=== PATIENT | female | born 1995 | race Caucasian/White ===

== ENCOUNTER 2024-10-30 16:09 | Emergency (ER) | payer BC, MEDICAID, SELFPAY ==
[2024-10-30 16:10] VITALS: BP 114/71; PULSE 99; RESP 16; TEMP 36.8; O2SAT 99; BMI 28.3
[2024-10-30 16:50] LABS: Basophils % 0.3 %; Eosinophils # 0.1 10^3/uL (0.0-0.8); Eosinophils % 0.6 %; Hematocrit 35.2 % (36-47); Lymphocytes # 1.5 10^3/uL (0.8-4.8); Lymphocytes % 13.8 %; Mean Corpuscular HGB Conc 30.1 g/dL (30-55); Mean Corpuscular Hemoglobin 20.6 pg (27-33); Mean Corpuscular Volume 68.5 fl (85-98); Mean Platelet Volume 10.2 fL (7.4-10.4); Monocytes # 0.7 10^3/uL (0.2-0.9); Monocytes % 6.5 %; Neutrophils # 8.53 10^3/uL (1.8-7.7); Neutrophils % 78.4 %; Nucleated Red Blood Cells % 0 %; Platelet Count 263 10^3/cmm (157-399); Red Blood Count 5.14 10^6/uL (3.85-5.65); Red Cell Distribution Width 17.8 % (12.1-15.1); White Blood Count 10.88 10^3/uL (3.29-11.43)
[2024-10-30 17:18] LABS: Alanine Aminotransferase 10 U/L (0-33); Albumin Level 3.8 g/dL (3.5-5.2); Alkaline Phosphatase 51 U/L (35-105); Anion Gap 16.3 (5-19); Aspartate Amino Transferase 14 U/L (0-32); Blood Urea Nitrogen 5 mg/dL (6-20); Calcium 8.9 mg/dL (8.5-10.5); Carbon Dioxide 20 mmol/L (22-29); Chloride 103 mmol/L (98-107); Creatinine Clr Calc Pharmacy 211.1685; Globulin 3.1 g/dL (1.3-4.6); Glomerular Filtration Rate 187.4 mL/min (90-130); Glucose 115 mg/dL (65-115); Lipase 27 U/L (13-60); Osmolality Calculated 280 mOsm/kg (285-295); Potassium 3.3 mmol/L (3.5-5.1); Sodium 136 mmol/L (136-145); Total Bilirubin 0.2 mg/dL (0.15-1.2); Total Protein 6.9 g/dL (6.6-8.7)
--- NOTE | 2024-10-30 17:28 | W.ED.PREGNAN ---
Documented by User: Joe Friedman DO 10/30/24 17:49 HPI - General: Chief complaint: OB/Uterine Contractions Stated complaint: 12 weeks preg, abd pain, n/v Time Seen by Provider: 10/30/24 17:27 History of Present Illness: 29-year-old female presents emergency room she estimates she is approximately 12 weeks . However she is a last normal menstrual period of July 13, 2024 because her an estimated gestational age of 15 weeks and 3 days. She denies any vaginal bleeding she has right-sided cramping. No dysuria urgency or frequency. No hematuria. Associated symptoms: Reports abdominal pain, nausea and vomiting; Deny dysuria Related Data Home Medications ?Medication ?Instructions ?Recorded ?Confirmed Control Patch transdermal 08/30/20 Previous Rx's ?Medication ?Instructions ?Recorded amoxicillin 875 mg tablet 875 mg PO BID 10 days #20 tabs 08/30/20 Allergies Allergy/AdvReac Type Severity Reaction Status Date / Time paroxetine (From Paxil) Allergy ADR-Agitate Verified 08/30/20 14:26 d Review of Systems Const: Denies: fever(s) or chills Card: Denies: chest pain Resp: Denies: dyspnea GI: Reports: abdominal pain, nausea and vomiting : Denies: dysuria, urinary frequency or urinary urgency Musc: Denies: neck pain or back pain Skin/Breast: Denies: rash PFSH ED PFSH: Social History Smoking and tobacco/nicotine status: current every day tobacco/nicotine user Physical Exam Const: GENERAL APPEARANCE: cooperative ORIENTATION/CONSCIOUSNESS: Yes awake, Yes oriented to person, Yes oriented to place and Yes oriented to time HENMT: COMMON NORMALS: normocephalic, atraumatic and hearing grossly normal bilaterally HEAD & SCALP: normocephalic and atraumatic Resp: COMMON NORMALS: normal respiratory effort, No retractions, No use of accessory muscles and clear to auscultation bilaterally AUSCULTATION: clear to auscultation bilaterally Cardio: COMMON NORMALS: regular rate, regular rhythm and No murmurs present (Cardio) RATE: regular rate RHYTHM: regular rhythm GI: COMMON NORMALS: Soft to palpation and No hepatosplenomegaly present AUSCULTATION: Yes normoactive bowel sounds PALPATION: Yes Soft to palpation, No Tenderness to palpation present (GI), No Guarding due to palpation present (GI) and Yes No hepatosplenomegaly present Extremity: COMMON NORMALS: normal to inspection, capillary refill normal, no clubbing, cyanosis or edema, no calf tenderness and no pedal edema Neuro: SENSORIUM/ORIENTATION: Yes oriented to person, Yes oriented to place and Yes oriented to time Skin: COMMON NORMALS: no rashes or lesions noted GENERAL SKIN EXAM: no rashes or lesions noted Course Vital Signs: Vital signs: Vital Signs Temperature 98.3 F 10/30/24 16:10 Pulse Rate 76 10/30/24 20:50 Respiratory Rate 16 10/30/24 16:10 Blood Pressure 105/58 10/30/24 20:50 Pulse Oximetry 97 10/30/24 20:50 Oxygen Delivery Me thod Room Air 10/30/24 17:45 MDM - OB/Uterine Contractions Medical Decision Making Care signed out to Dr. Bills at change of shift. See final notes for diagnosis and disposition. Lab Data 10/30/24 16:39 10/30/24 16:39 Radiology Impressions Obstetrics Ultrasound 10/30/24 18:39 IMPRESSION: Single live intrauterine gestation as above. Laboratory Results WBC 10.88 10^3/uL (3.29-11.43) 10/30/24 16:39 RBC 5.14 10^6/uL (3.85-5.65) 10/30/24 16:39 Hgb 10.60 g/dL (11.27-16.99) L 10/30/24 16:39 Hct 35.2 % (36-47) L 10/30/24 16:39 MCV 68.5 fl (85-98) L 10/30/24 16:39 MCH 20.6 pg (27-33) L 10/30/24 16:39 MCHC 30.1 g/dL (30-55) 10/30/24 16:39 RDW 17.8 % (12.1-15.1) H 10/30/24 16:39 Plt Count 263 10^3/cmm (157-399) 10/30/24 16:39 MPV 10.2 fL (7.4-10.4) 10/30/24 16:39 Neut % (Auto) 78.4 % 10/30/24 16:39 Lymph % (Auto) 13.8 % 10/30/24 16:39 Duchesne % (Auto) 6.5 % 10/30/24 16:39 Eos % (Auto) 0.6 % 10/30/24 16:39 Baso % (Auto) 0.3 % 10/30/24 16:39 Neut # (Auto) 8.53 10^3/uL (1.8-7.7) H 10/30/24 16:39 Lymph # (Auto) 1.5 10^3/uL (0.8-4.8) 10/30/24 16:39 Duchesne # (Auto) 0.7 10^3/uL (0.2-0.9) 10/30/24 16:39 Eos # (Auto) 0.1 10^3/uL (0.0-0.8) 10/30/24 16:39 Baso # (Auto) 0.0 10^3/uL (0.0-0.1) 10/30/24 16:39 Nucleated RBC % (auto) 0 % 10/30/24 16:39 Nucleated RBCs # 0.0 /100WBC 10/30/24 16:39 Sodium 136 mmol/L (136-145) 10/30/24 16:39 Potassium 3.3 mmol/L (3.5-5.1) L 10/30/24 16:39 Chloride 103 mmol/L (98-107) 10/30/24 16:39 Carbon Dioxide 20 mmol/L (22-29) L 10/30/24 16:39 Anion Gap 16.3 (5-19) 10/30/24 16:39 BUN 5 mg/dL (6-20) L 10/30/24 16:39 Creatinine 0.4 mg/dL (0.5-0.9) L 10/30/24 16:39 GFR Calculation 187.4 mL/min (90-130) H 10/30/24 16:39 Glucose 115 mg/dL (65-115) 10/30/24 16:39 Calculated Osmolality 280 mOsm/kg (285-295) L 10/30/24 16:39 Calcium 8.9 mg/dL (8.5-10.5) 10/30/24 16:39 Total Bilirubin 0.2 mg/dL (0.15-1.2) 10/30/24 16:39 AST 14 U/L (0-32) 10/30/24 16:39 ALT 10 U/L (0-33) 10/30/24 16:39 Alkaline Phosphatase 51 U/L (35-105) 10/30/24 16:39 Total Protein 6.9 g/dL (6.6-8.7) 10/30/24 16:39 Albumin 3.8 g/dL (3.5-5.2) 10/30/24 16:39 Globulin 3.1 g/dL (1.3-4.6) 10/30/24 16:39 Lipase 27 U/L (13-60) 10/30/24 16:39 Ser , Semi-Qnt 52010.00 mIU/mL 10/30/24 16:39 Urine Color Yellow (Yellow) 10/30/24 17:20 Urine Appearance Clear (CLEAR) 10/30/24 17:20 Urine pH 6.0 (5-7) 10/30/24 17:20 Ur Specific Elwood 1.022 (1.005-1.030) 10/30/24 17:20 Urine Protein Negative (Negative) 10/30/24 17:20 Urine Glucose (UA) Negative (Normal) 10/30/24 17:20 Urine Ketones Negative (Negative) 10/30/24 17:20 Urine Blood Negative (Negative) 10/30/24 17:20 Urine Nitrate Negative (Negative) 10/30/24 17:20 Urine Bilirubin Negative (Negative) 10/30/24 17:20 Urine Urobilinogen 1.0 mg/dL (Negative) 10/30/24 17:20 Ur Leukocyte Esterase 1+ (Negative) A 10/30/24 17:20 Urine RBC 0-2 /hpf (0-2) 10/30/24 17:20 Urine WBC 11-20 /hpf (0-5) H 10/30/24 17:20 Ur Squamous Epith Cells 0-5 /hpf (0-5) 10/30/24 17:20 Amorphous Sediment Not Reportable 10/30/24 17:20 Urine Bacteria Trace /hpf (NONE) 10/30/24 17:20 Hyaline Casts 0.40 /lpf 10/30/24 17:20 Discharge Plan Discharge Patient Disposition: Home Clinical Impression: Abdominal pain affecting Condition: Stable Prescriptions: No Action Control Patch transdermal amoxicillin 875 mg tablet 875 mg PO BID 10 Days Qty: 20 0RF Discharge Orders: Discharge ED (Routine); Ordered 10/30/24 Ordered By: Marvin Bills Patient Instructions: Abdominal Pain (ED) Activity Restrictions/Additional Instructions: As we discussed, the pain in your abdomen is alarmingly close to the region of the appendix however the timing of your pain and the quality of your pain are not consistent with appendicitis at this time. If symptoms get worse please do not hesitate to return to the emergency department so that we can do further testing. As for now, you appear to have a healthy intrauterine . Please follow-up with the [facility] as previously scheduled. Print Language: Prydeinig Coding Level of Care Code ED Glove Former for Chg Fwd Documented by User: Marvin Bills MD 10/31/24 05:42 HPI - General: Chief complaint: OB/Uterine Contractions Stated complaint: 12 weeks preg, abd pain, n/v Time Seen by Provider: 10/30/24 17:27 Related Data Home Medications ?Medication ?Instructions ?Recorded ?Confirmed Control Patch transdermal 08/30/20 Previous Rx's ?Medication ?Instructions ?Recorded amoxicillin 875 mg tablet 875 mg PO BID 10 days #20 tabs 08/30/20 Allergies Allergy/AdvReac Type Severity Reaction Status Date / Time paroxetine (From Paxil) Allergy ADR-Agitate Verified 08/30/20 14:26 d [facility] ED PFS: Social History Smoking and tobacco/nicotine status: current every day tobacco/nicotine user Course Vital Signs: Vital signs: Vital Signs Temperature 98.3 F 10/30/24 16:10 Pulse Rate 76 10/30/24 20:50 Respiratory Rate 16 10/30/24 16:10 Blood Pressure 105/58 10/30/24 20:50 Pulse Oximetry 97 10/30/24 20:50 Oxygen Delivery Me thod Room Air 10/30/24 17:45 MDM - OB/Uterine Contractions Medical Decision Making Care signed out to Dr. Bills at change of shift. See final notes for diagnosis and disposition. Patient signed out to me pending ultrasound which shows a single intrauterine which is viable. Patient is happy about this. Urinalysis does not show convincing evidence of UTI but culture will be sent just in case. She will be discharged home in stable improved condition with follow-up to [facility] as previously scheduled. Lab Data 10/30/24 16:39 10/30/24 16:39 Radiology Impressions Obstetrics Ultrasound 10/30/24 18:39 IMPRESSION: Single live intrauterine gestation as above. Laboratory Results WBC 10.88 10^3/uL (3.29-11.43) 10/30/24 16:39 RBC 5.14 10^6/uL (3.85-5.65) 10/30/24 16:39 Hgb 10.60 g/dL (11.27-16.99) L 10/30/24 16:39 Hct 35.2 % (36-47) L 10/30/24 16:39 MCV 68.5 fl (85-98) L 10/30/24 16:39 MCH 20.6 pg (27-33) L 10/30/24 16:39 MCHC 30.1 g/dL (30-55) 10/30/24 16:39 RDW 17.8 % (12.1-15.1) H 10/30/24 16:39 Plt Count 263 10^3/cmm (157-399) 10/30/24 16:39 MPV 10.2 fL (7.4-10.4) 10/30/24 16:39 Neut % (Auto) 78.4 % 10/30/24 16:39 Lymph % (Auto) 13.8 % 10/30/24 16:39 Duchesne % (Auto) 6.5 % 10/30/24 16:39 Eos % (Auto) 0.6 % 10/30/24 16:39 Baso % (Auto) 0.3 % 10/30/24 16:39 Neut # (Auto) 8.53 10^3/uL (1.8-7.7) H 10/30/24 16:39 Lymph # (Auto) 1.5 10^3/uL (0.8-4.8) 10/30/24 16:39 Duchesne # (Auto) 0.7 10^3/uL (0.2-0.9) 10/30/24 16:39 Eos # (Auto) 0.1 10^3/uL (0.0-0.8) 10/30/24 16:39 Baso # (Auto) 0.0 10^3/uL (0.0-0.1) 10/30/24 16:39 Nucleated RBC % (auto) 0 % 10/30/24 16:39 Nucleated RBCs # 0.0 /100WBC 10/30/24 16:39 Sodium 136 mmol/L (136-145) 10/30/24 16:39 Potassium 3.3 mmol/L (3.5-5.1) L 10/30/24 16:39 Chloride 103 mmol/L (98-107) 10/30/24 16:39 Carbon Dioxide 20 mmol/L (22-29) L 10/30/24 16:39 Anion Gap 16.3 (5-19) 10/30/24 16:39 BUN 5 mg/dL (6-20) L 10/30/24 16:39 Creatinine 0.4 mg/dL (0.5-0.9) L 10/30/24 16:39 GFR Calculation 187.4 mL/min (90-130) H 10/30/24 16:39 Glucose 115 mg/dL (65-115) 10/30/24 16:39 Calculated Osmolality 280 mOsm/kg (285-295) L 10/30/24 16:39 Calcium 8.9 mg/dL (8.5-10.5) 10/30/24 16:39 Total Bilirubin 0.2 mg/dL (0.15-1.2) 10/30/24 16:39 AST 14 U/L (0-32) 10/30/24 16:39 ALT 10 U/L (0-33) 10/30/24 16:39 Alkaline Phosphatase 51 U/L (35-105) 10/30/24 16:39 Total Protein 6.9 g/dL (6.6-8.7) 10/30/24 16:39 Albumin 3.8 g/dL (3.5-5.2) 10/30/24 16:39 Globulin 3.1 g/dL (1.3-4.6) 10/30/24 16:39 Lipase 27 U/L (13-60) 10/30/24 16:39 Ser , Semi-Qnt 60745.00 mIU/mL 10/30/24 16:39 Urine Color Yellow (Yellow) 10/30/24 17:20 Urine Appearance Clear (CLEAR) 10/30/24 17:20 Urine pH 6.0 (5-7) 10/30/24 17:20 Ur Specific Elwood 1.022 (1.005-1.030) 10/30/24 17:20 Urine Protein Negative (Negative) 10/30/24 17:20 Urine Glucose (UA) Negative (Normal) 10/30/24 17:20 Urine Ketones Negative (Negative) 10/30/24 17:20 Urine Blood Negative (Negative) 10/30/24 17:20 Urine Nitrate Negative (Negative) 10/30/24 17:20 Urine Bilirubin Negative (Negative) 10/30/24 17:20 Urine Urobilinogen 1.0 mg/dL (Negative) 10/30/24 17:20 Ur Leukocyte Esterase 1+ (Negative) A 10/30/24 17:20 Urine RBC 0-2 /hpf (0-2) 10/30/24 17:20 Urine WBC 11-20 /hpf (0-5) H 10/30/24 17:20 Ur Squamous Epith Cells 0-5 /hpf (0-5) 10/30/24 17:20 Amorphous Sediment Not Reportable 10/30/24 17:20 Urine Bacteria Trace /hpf (NONE) 10/30/24 17:20 Hyaline Casts 0.40 /lpf 10/30/24 17:20 All radiology interpretation(s) finalized by discharge Discharge Plan Discharge Patient Disposition: Home Clinical Impression: Abdominal pain affecting Condition: Stable Prescriptions: No Action Control Patch transdermal amoxicillin 875 mg tablet 875 mg PO BID 10 Days Qty: 20 0RF Discharge Orders: Discharge ED (Routine); Ordered 10/30/24 Ordered By: Marvin Bills Patient Instructions: Abdominal Pain (ED) Activity Restrictions/Additional Instructions: As we discussed, the pain in your abdomen is alarmingly close to the region of the appendix however the timing of your pain and the quality of your pain are not consistent with appendicitis at this time. If symptoms get worse please do not hesitate to return to the emergency department so that we can do further testing. As for now, you appear to have a healthy intrauterine . Please follow-up with the [facility] as previously scheduled. Print Language: Prydeinig Coding Level of Care Code ED Glove Former for Radha Alfred
[2024-10-30 17:30] LABS: Bilirubin Urine Negative (Negative); Blood Urine Negative (Negative); Glucose Urine UA Negative (Normal); Ketones Urine Negative (Negative); Leukocyte Esterase Urine 1+ (Negative); Nitrate Urine Negative (Negative); Protein Urine Negative (Negative); Specific Gravity, Urine 1.022 (1.005-1.030); Urine Appearance Clear (CLEAR); Urine Color Yellow (Yellow)
[2024-10-30 17:35] LABS: Add Urine Microscopic? YES; Bacteria Urine Trace /hpf; RBC Urine 0-2 /hpf (0-2); Squamous Epithelial Cell Urine 0-5 /hpf (0-5)
[2024-10-30 17:45] VITALS: BP 122/84; PULSE 81; O2SAT 99
[2024-10-30 17:51] LABS: Add Urine Culture? No
[2024-10-30] MEDS: sodium chloride 0.9% 1,000 ML 999 ML IV (17:59)
[2024-10-30] MEDS: diphenhydrAMINE 50 mg/mL SDV 1mL IVP (18:00)
[2024-10-30 18:30] VITALS: BP 112/66; PULSE 86; O2SAT 99
--- NOTE | 2024-10-30 18:39 | USR_ITS ---
PROCEDURE INFORMATION: Exam: US , Limited Exam date and time: 10/30/2024 7:35 PM Age: 29 years old Clinical indication: complicated by abdominal or pelvic pain; Right lower quadrant; First trimester (<14 weeks 0 days); Gestational age or lmp: 11w 4 d by ultrasound today; ; Prior surgery; Surgery date: 6+ months; Surgery type: Csection; Additional info: Abd pain 15 wks gest LABS AND CLINICAL REPORTS: Choriogonadotropin in serum (Serum HCG): 42821 mIU/mL Last menstrual period start date: 07/13/2024 Gestational age (Established): 15 w 4 d Estimated due date (Established): 04/19/2025 TECHNIQUE: Imaging protocol: Real-time ultrasound of the maternal uterus with image documentation. Exam focused on the clinical indication. COMPARISON: No relevant prior studies available. FINDINGS: Gestation: Single live intrauterine gestation. heart rate: 150 bpm presentation and position: Variable positioning. Placenta: Posterior in location without previa. BIOMETRY: Gestational age (AUA): 11 w 4 d Estimated due date (AUA): 05/17/2025 MATERNAL: Uterus: Uterus measures 15.94 cm x 10.47 cm x 5 cm. Uterine fibroids. Right ovary/adnexa: Right ovary measures 4.6 cm x 3.7 cm x 2.5 cm. Right ovarian volume is 22.5 mL. Left ovary/adnexa: Left ovary measures 5.1 cm x 2.8 cm x 1.7 cm. Left ovarian volume is 13 mL. US/US OB limited [id number] IMPRESSION: Single live intrauterine gestation as above.
[2024-10-30 19:00] VITALS: BP 104/58; PULSE 82; O2SAT 99
[2024-10-30 19:30] VITALS: BP 105/55; PULSE 74; O2SAT 97
[2024-10-30 20:50] VITALS: BP 105/58; PULSE 76; O2SAT 97
== END 2024-10-30 20:51 | disposition home or self-care (01) ==
PROVIDERS: Emergency Medicine; Emergency Provider Family Medicine
DX: O26.899 Other specified pregnancy related conditions, unspecified trimester (principal)
CPT/HCPCS: 36415; 76815; 80053; 81001; 83690; 84702; 85025; 87086; 96361; 96374; 99284; J1200; J7030

== ENCOUNTER → 2024-11-30 09:44 | Outpatient (BNVA) | payer BC, MEDICAID, SELFPAY | PROVIDERS: Visit Provider Nurse Practitioner Women's Health | DX: O26.892 Other specified pregnancy related conditions, second trimester (principal); N91.2 Amenorrhea, unspecified; Z3A.16 16 weeks gestation of pregnancy | CPT/HCPCS: 80307; 81025; 82105; 85025; 86592; 86762; 86803; 86850; 86900; 87077; 87086; 87184; 87340; 87806 ==

== ENCOUNTER → 2024-12-11 13:42 | Outpatient (BNVA) | payer BC, MEDICAID, SELFPAY | PROVIDERS: Visit Provider Nurse Practitioner Women's Health | DX: O09.899 Supervision of other high risk pregnancies, unspecified trimester (principal); Z3A.00 Weeks of gestation of pregnancy not specified | CPT/HCPCS: 84315; 87491; 87591; 87624; 87661 ==

== ENCOUNTER 2024-12-15 11:53 | Emergency (ER) | payer BC, MEDICAID, SELFPAY ==
--- OUTSIDE RECORDS SUMMARY | 2024-12-15 11:58 | XMS_ITS | Clinical Summary ---
Author Organization [facility] Address [address] [place] [address] Care Team Providers Care Behavioral Health Consultant Name Role Phone Lucero La DO Primary Care Provider [phone] Allergies Active Allergy Reactions Criticality Noted Date Comments Paroxetine Hcl Other (See Comments) 11/20/2020 Makes her extremely emanuel. Medications traMADoL (ULTRAM) 50 mg tablet Take 1 Tablet (50 mg) by mouth every 6 hours as needed for Pain, Severe. 20 Tablet 0 9 Active Ethinyl Estradiol-Nore lgestrom (Xulane) 150-35 mcg/24 hr Patch Weekly PATCH Apply 1 Patch to skin as directed see administration instructions. 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 Gender Identity Not on file Sexual Orientation Not on file Last Filed Vital Signs Vital Sign Reading Time Taken Comments Blood Pressure 114/68 11/25/2020 1:16 AM CDT Pulse 70 11/25/2020 1:16 AM CDT Temperature 36.8 C (98.2 F) 11/25/2020 1:16 AM CDT Respiratory Rate 16 11/25/2020 1:16 AM CDT Oxygen Saturation - - Inhaled Oxygen Concentration - - Weight 90.7 kg (200 lb) 11/24/2020 9:58 PM CDT Height 160 cm (5' 3 ) 11/24/2020 9:58 PM CDT Body Mass Index 35.43 11/24/2020 9:58 PM CDT Plan of Treatment Health Maintenance Due Date Last Done Comments DTAP/TDAP/TD VACCINES (1 - Tdap) 2013 HEPATITIS B VACCINES (1 of 3 - 19+ 3-dose series) 2013 HPV/Cotest (21-29) 2015 CERVICAL CANCER SCREENING 01/06/2024 HPV/Cotest (30-65) 01/06/2024 PAP SMEAR 01/06/2024 INFLUENZA VACCINE (#1) 2024 HPV VACCINES Aged Out No longer eligi ble based on patient's age to complete this topic Care Teams Behavioral Health Consultant Relationship Specialty Start Date End Date Lucero La DO [address] [address] PCP - General 11/20/20
--- OUTSIDE RECORDS SUMMARY | 2024-12-15 11:58 | XMS_ITS | Clinical Summary ---
Author Organization [facility] Address [address] [place] [address] Care Team Providers Care Commercial Energy Rater Name Role Phone Lucero La DO Primary Care Provider [phone] Allergies Active Allergy Reactions Criticality Noted Date Comments Paroxetine Hcl Other (See Comments) 11/20/2020 Makes her extremely emanuel. Medications traMADol (ULTRAM) 50 mg tablet Take 1 Tablet (50 mg) by mouth every 6 hours as needed for Pain, Severe. 20 Tablet 9 Active Ethinyl Estradiol-Nore lgestrom (Xulane) 150-35 mcg/24 hr Patch Weekly PATCH Apply 1 Patch to skin as directed see administration instructions. 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 Gender Identity Not on file Sexual Orientation Not on file Last Filed Vital Signs Vital Sign Reading Time Taken Comments Blood Pressure 114/68 11/25/2020 1:16 AM CDT Pulse 70 11/25/2020 1:16 AM CDT Temperature 36.8 C (98.2 F) 11/25/2020 1:16 AM CDT Respiratory Rate 16 11/25/2020 1:16 AM CDT Oxygen Saturation 97% 11/25/2020 1:16 AM CDT Inhaled Oxygen Concentration - - Weight 90.7 [...] on patient's age to complete this topic Insurance [facility] MEDICAID [facility] MEDICAID Care Teams Commercial Energy Rater Relationship Specialty Start Date End Date uLcero La DO [address] [facility] [place] [address] [place] [address] PCP - General Family Practice 11/20/20
[2024-12-15 12:01] VITALS: BP 123/71; PULSE 87; RESP 16; TEMP 36.8; O2SAT 100; BMI 28.9
--- NOTE | 2024-12-15 12:39 | ED_ITS ---
HPI - Nausea/Vomiting/Diarrhea 2 General: Chief complaint: Nausea/Vomiting/Diarrhea Stated complaint: 18 wk preg, n/v/d abdom cramping Time Seen by Provider: 12/15/24 12:22 History of Present Illness: 29-year-old female G5, P3 at 18 weeks re ports today she started having some nausea and had 5 episodes of vomiting. She is also had 2 episodes of nonbloody diarrhea. Now she is having stomach cramping. Patient reports its mostly in the top of her abdomen. She does not know of any sick contacts. She did just finish some cephalexin for a UTI. Her UTI symptoms are now gone. However now she has the nausea vomiting diarrhea as well as a vaginal yeast infection with itching. She denies any vaginal gush of fluid, bleeding, or discharge. Symptoms started this morning at work. Associated nausea: Yes Associated symtoms: Reports nausea; Denies altered mental status Related Data Home Medications ?Medication ?Instructions ?Recorded ?Confirmed PNV 153-FA 400 mcg-om3 35 mg-dha 1 tab PO DAILY 12/15/24 25 mg-epa 5 mg-fish oil chew tablet ( Gummies) Previous Rx's ?Medication ?Instructions ?Recorded ferrous sulfate 325 mg (65 mg 325 mg PO BID #60 tabs 0 12/04/24 iron) tablet clotrimazole 2 % vaginal cream 1 appful vaginal TID 3 days #21 12/15/24 (Clotrimazole 3 Day) grams ondansetron 4 mg disintegrating 4 mg PO Q6H PRN nausea and 12/15/24 tablet vomiting #14 tabs Allergies Allergy/AdvReac Type Severity Reaction Status Date / Time paroxetine (From Paxil) Allergy ADR-Agitate Verified 12/11/24 13:54 d topical menthol Allergy Severe chemical Uncoded 12/11/24 13:54 burn Review of Systems 2 General: Reports: 10 or more systems reviewed and unremarkable except in HPI and below Const: Denies: fever(s), chills or body aches GI: Reports: abdominal pain, nausea, vomiting and diarrhea; Denies: hematemesis, coffee ground emesis, dysphagia, heartburn or constipation PFSH ED 2 PFSH: Medical History Migraine without aura ADHD was treated with Wellbutrin -- ran out; needs pcp No pertinent past medical history neghx: htn, dm, thyroid, dvt/pe PCP: none Surgical History History of wisdom tooth extraction, class I edentulism Hx of knee surgery History of placement of ear tubes History of tonsillectomy and adenoidectomy Hx laparoscopic cholecystectomy History of delivery (~2001) Primary for breech presentation-- Dr Kang Graham Family History Father Diabetes Grandfather Diabetes Grandmother Heart disease Denies family history of Colon cancer Ovarian cancer Prostate cancer Hyperlipidemia Breast cancer Hypertension Uterine cancer Thyroid disease Stroke Social History Smoking and tobacco/nicotine status: current every day tobacco/nicotine user (1 pack every 3 days) Physical Exam 2 Narrative: EXAM NARRATIVE: Hyperactive bowel sounds. Not high-pitched. Soft. Nondistended. Mild generalized tenderness. Uterus palpable about 2 fingerbreadths below the umbilicus. Const: COMMON NORMALS: no limitations, alert and well nourished EXAM LIMITATIONS: no altered mental status HENMT: COMMON NORMALS: normocephalic, atraumatic and external ears normal H EAD & SCALP: normocephalic and atraumatic EXTERNAL EAR: Yes external ears normal MOUTH: no muffled voice Eye: COMMON NORMALS: EOMs intact bilaterally, conjunctivae normal and no scleral icterus CONJUNCTIVA: Yes conjunctivae normal Neck/C-Spine: COMMON NORMALS: no JVD GENERAL: Yes normal visual inspection and Yes trachea midline Resp: COMMON NORMALS: normal respiratory effort, No use of accessory muscles and clear to auscultation bilaterally AUSCULTATION: clear to auscultation bilaterally Cardio: COMMON NORMALS: no JVD, regular rate and regular rhythm RATE: r egular rate RHYTHM: regular rhythm GI: COMMON NORMALS: Soft to palpation PALPATION: Yes Soft to palpation, No Guarding due to palpation present (GI), No Rigid due to palpation and Yes Palpable mass present (Uterine--gravid. Appreciable about 2 finger widths below the umbilicus.) Extremity: COMMON NORMALS: normal to inspection Neuro: COMMON NORMALS: moves all extremities, no focal motor deficits and no sensory deficits noted SENSORIUM/ORIENTATION: Yes alert SPEECH: speech normal Psych: COMMON NORMALS: mental status grossly normal, Normal thought process present, cooperative, normal affect and speech normal SPEECH: Yes normal speech THOUGHT PROCESS: Normal thought process present Skin: COMMON NORMALS: no rashes or lesions noted, turgor normal and no jaundice GENERAL SKIN EXAM: no rashes or lesions noted and turgor normal Course 2 Vital Signs: Vital signs: Vital Signs Temperature 98.3 F 12/15/24 12:01 Pulse Rate 87 12/15/24 12:01 Respiratory Rate 17 12/15/24 13:20 Blood Pressure 123/71 12/15/24 12:01 Pulse Oximetry 98 12/15/24 13:20 Oxygen Delivery Me thod Room Air 12/15/24 12:01 MDM - Nausea/Vomiting/Diarrhea Medical Decision Making 29-year-old female presents with acute nausea vomiting diarrhea. Fortunately she is not having any uterine cramping, gush of fluid or bleeding. heart tones are 150 which is normal for this. In . The patient was treated with IV fluids, Zofran, Benadryl, small 2 mg dose of morphine. She showed a mildly elevated white blood cell count which can be expected in as well as an acute gastroenteritis. She is otherwise well-appearing and nontoxic. Since symptoms just started today, I do not think we are going to test for C. difficile or do any culturing. If she continues to get worse, this may be indicated since she has had some recent antibiotics. It looks like she was taking cephalexin which would be less likely to cause C. difficile. She does have a vaginal yeast infection and clotrimazole has been ordered. On reassessment, the patient reports she does feel a bit better. She has not had any vomiting here nor any diarrhea here. Vital signs are reassuring and patient will be discharged with strict return precautions. Lab Data 12/15/24 13:03 12/15/24 13:03 Laboratory Results WBC 15.67 10^3/uL (3.29-11.43) H 12/15/24 13:03 RBC 4.98 10^6/uL (3.85-5.65) 12/15/24 13:03 Hgb 10.50 g/dL (11.27-16.99) L 12/15/24 13:03 Hct 34.5 % (36-47) L 12/15/24 13:03 MCV 69.3 fl (85-98) L 12/15/24 13:03 MCH 21.1 pg (27-33) L 12/15/24 13:03 MCHC 30.4 g/dL (30-55) 12/15/24 13:03 RDW 18.9 % (12.1-15.1) H 12/15/24 13:03 Plt Count 264 10^3/cmm (157-399) 12/15/24 13:03 MPV 10.0 fL (7.4-10.4) 12/15/24 13:03 Neut % (Auto) 86.9 % 12/15/24 13:03 Lymph % (Auto) 5.5 % 12/15/24 13:03 [place] % (Auto) 6.3 % 12/15/24 13:03 Eos % (Auto) 0.2 % 12/15/24 13:03 Baso % (Auto) 0.3 % 12/15/24 13:03 Neut # (Auto) 13.63 10^3/uL (1.8-7.7) H 12/15/24 13:03 Lymph # (Auto) 0.9 10^3/uL (0.8-4.8) 12/15/24 13:03 [place] # (Auto) 1.0 10^3/uL (0.2-0.9) H 12/15/24 13:03 Eos # (Auto) 0.0 10^3/uL (0.0-0.8) 12/15/24 13:03 Baso # (Auto) 0.0 10^3/uL (0.0-0.1) 12/15/24 13:03 Nucleated RBC % (auto) 0 % 12/15/24 13:03 Nucleated RBCs # 0.0 /100WBC 12/15/24 13:03 Sodium 136 mmol/L (136-145) 12/15/24 13:03 Potassium 3.8 mmol/L (3.5-5.1) 12/15/24 13:03 Chloride 101 mmol/L (98-107) 12/15/24 13:03 Carbon Dioxide 23 mmol/L (22-29) 12/15/24 13:03 Anion Gap 15.8 (5-19) 12/15/24 13:03 BUN 5 mg/dL (6-20) L 12/15/24 13:03 Creatinine 0.4 mg/dL (0.5-0.9) L 12/15/24 13:03 GFR Calculation 187.4 mL/min (90-130) H 12/15/24 13:03 Glucose 81 mg/dL (65-115) 12/15/24 13:03 Calculated Osmolality 278 mOsm/kg (285-295) L 12/15/24 13:03 Calcium 9.0 mg/dL (8.5-10.5) 12/15/24 13:03 Magnesium 1.8 mg/dL (1.7-2.3) 12/15/24 13:03 Total Bilirubin 0.2 mg/dL (0.15-1.2) 12/15/24 13:03 AST 25 U/L (0-32) 12/15/24 13:03 ALT 14 U/L (0-33) 12/15/24 13:03 Alkaline Phosphatase 72 U/L (35-105) 12/15/24 13:03 Total Protein 7.4 g/dL (6.6-8.7) 12/15/24 13:03 Albumin 3.9 g/dL (3.5-5.2) 12/15/24 13:03 Globulin 3.5 g/dL (1.3-4.6) 12/15/24 13:03 Urine Color Yellow (Yellow) 12/15/24 13:03 Urine Appearance Clear (CLEAR) 12/15/24 13:03 Urine pH 5.5 (5-7) 12/15/24 13:03 Ur Specific [place] 1.022 (1.005-1.030) 12/15/24 13:03 Urine Protein Trace (Negative) A 12/15/24 13:03 Urine Glucose (UA) Negative (Normal) 12/15/24 13:03 Urine Ketones 1+ (Negative) H 12/15/24 13:03 Urine Blood Negative (Negative) 12/15/24 13:03 Urine Nitrate Negative (Negative) 12/15/24 13:03 Urine Bilirubin Negative (Negative) 12/15/24 13:03 Urine Urobilinogen 1.0 mg/dL (Negative) 12/15/24 13:03 Ur Leukocyte Esterase Negative (Negative) 12/15/24 13:03 Urine RBC 0-2 /hpf (0-2) 12/15/24 13:03 Urine WBC 0-5 /hpf (0-5) 12/15/24 13:03 Ur Squamous Epith Cells 0-5 /hpf (0-5) 12/15/24 13:03 Amorphous Sediment Not Reportable 12/15/24 13:03 Urine Bacteria None seen /hpf (NONE) 12/15/24 13:03 Hyaline Casts 0.81 /lpf 12/15/24 13:03 No radiology studies performed this visit Discharge Plan Discharge Patient Disposition: Home Clinical Impression: Gastroenteritis, Vaginal yeast infection, Antibiotic-associated diarrhea Condition: Stable Prescriptions: New Clotrimazole 3 Day 2 % cream 1 appful vaginal TID 3 Days Qty: 21 0RF ondansetron 4 mg tablet,disintegrating 4 mg PO Q6H PRN (Reason: nausea and vomiting) Qty: 14 0RF Discontinued cephalexin 500 mg capsule 500 mg PO BID 7 Days Qty: 14 0RF No Action ferrous sulfate 325 mg (65 mg iron) tablet 325 mg PO BID Qty: 60 4RF Gummies 400 mcg-35 mg- 25 mg-5 mg Tablet,Chewable 1 tab PO DAILY Discharge Orders: Discharge ED (Routine); Ordered 12/15/24 Ordered By: Devin Swanson Patient Instructions: Patient Portal & Darrell Instructions Activity Restrictions/Additional Instructions: Diagnosis: Acute nausea vomiting diarrhea with stomach cramping. (Suspected gastroenteritis) in an 18-week patient, reassuring workup, heart tones 150 bpm. Discharge Instructions: - Hydration: Encourage frequent small sips of oral rehydration solution (ORS) containing glucose. Water, clear broths, and diluted fruit juices (avoid high- fat or caffeinated beverages) are also appropriate. Monitor for signs of dehydration (dizziness, decreased urine output, dry mouth).[1] https://pubmed.ncbi.nlm.nih.gov/40617651 [2] https://pubmed.ncbi.nlm.nih.gov/01332398 - Diet: Resume eating as tolerated with small, frequent meals. Favor bland, low- fat, high-carbohydrate foods (e.g., bananas, rice, applesauce, toast?BRAT diet). Avoid dairy products except yogurt, as transient lactase deficiency may occur post-infection. Avoid spicy, fatty, or highly seasoned foods and artificial sweeteners.[1] https://pubmed.ncbi.nlm.nih.gov/45806174 [3] https://pubmed.ncbi.nlm.nih.gov/41611672 - Infection Control: Practice strict hand hygiene. Avoid preparing food for others until at least 48?72 hours after symptom resolution, as norovirus and other enteric viruses are highly contagious.[2] https://pubmed.ncbi.nlm.nih.gov/05093522 [4] https://pubmed.ncbi.nlm.nih.gov/90258269 - Activity: Rest as needed. Gradually resume normal activities as tolerated. - Medications: Antidiarrheal agents (e.g., loperamide) are generally reserved for severe symptoms and should be used with caution in ; consult obstetrics if symptoms are severe or persistent.[1] https://pubmed.ncbi.nlm.nih.gov/01291632 - Nausea/Vomiting: If nausea and vomiting persist, consider dietary and lifestyle modifications. If symptoms are moderate to severe, stepwise pharmacologic therapy (vitamin B6, doxylamine, or antiemetics such as ondansetron, metoclopramide, or promethazine) may be considered per [place] [employer] guidance.[3] https://pubmed.ncbi.nlm.nih.gov/04995149 Return Precautions: - Return immediately for any of the following: - Inability to tolerate oral fluids or persistent vomiting/diarrhea leading to signs of dehydration (e.g., minimal urine output, orthostatic symptoms) - Fever >38?C (100.4?F) - Severe abdominal pain, persistent or worsening symptoms - Blood in stool or vomitus - Signs of labor (abdominal cramping, vaginal bleeding, leakage of fluid) - Decreased movement - Any new or concerning symptoms Follow-up: Routine obstetric follow-up as scheduled. If symptoms persist beyond 48?72 hours or worsen, or if there is any concern for maternal or well- being, seek prompt medical evaluation. Summary: Most cases of viral gastroenteritis in are self-limited and managed with supportive care. The [place] [employer] and the [place] [employer] recommend close attention to hydration, dietary modification, and prompt return for any concerning symptoms Print Language: Czech Coding Level of Care Code ED Wallcovering Hanger for Radha Alfred
[2024-12-15] MEDS: diphenhydrAMINE 50 mg/mL SDV 1mL 25 MG IVP (13:18)
[2024-12-15] MEDS: sodium chloride 0.9% 1,000 ML 999 ML IV (13:18)
[2024-12-15 13:20] VITALS: RESP 17; O2SAT 98
[2024-12-15] MEDS: morphine 4 mg/mL SDV 1 mL 2 MG IVP (13:20)
[2024-12-15] MEDS: ondansetron 2 mg/ML SDV 2 mL 4 MG IVP (13:20)
[2024-12-15 13:23] LABS: Basophils % 0.3 %; Eosinophils % 0.2 %; Hematocrit 34.5 % (36-47); Lymphocytes # 0.9 10^3/uL (0.8-4.8); Lymphocytes % 5.5 %; Mean Corpuscular HGB Conc 30.4 g/dL (30-55); Mean Corpuscular Hemoglobin 21.1 pg (27-33); Mean Corpuscular Volume 69.3 fl (85-98); Monocytes % 6.3 %; Neutrophils # 13.63 10^3/uL (1.8-7.7); Neutrophils % 86.9 %; Nucleated Red Blood Cells % 0 %; Platelet Count 264 10^3/cmm (157-399); Red Blood Count 4.98 10^6/uL (3.85-5.65); Red Cell Distribution Width 18.9 % (12.1-15.1); White Blood Count 15.67 10^3/uL (3.29-11.43)
[2024-12-15 13:46] LABS: Bilirubin Urine Negative (Negative); Blood Urine Negative (Negative); Glucose Urine UA Negative (Normal); Ketones Urine 1+ (Negative); Leukocyte Esterase Urine Negative (Negative); Nitrate Urine Negative (Negative); Protein Urine Trace (Negative); Specific Gravity, Urine 1.022 (1.005-1.030); Urine Appearance Clear (CLEAR); Urine Color Yellow (Yellow); pH Urine 5.5 (5-7)
[2024-12-15 13:50] LABS: Alanine Aminotransferase 14 U/L (0-33); Albumin Level 3.9 g/dL (3.5-5.2); Alkaline Phosphatase 72 U/L (35-105); Anion Gap 15.8 (5-19); Aspartate Amino Transferase 25 U/L (0-32); Blood Urea Nitrogen 5 mg/dL (6-20); Carbon Dioxide 23 mmol/L (22-29); Chloride 101 mmol/L (98-107); Globulin 3.5 g/dL (1.3-4.6); Glomerular Filtration Rate 187.4 mL/min (90-130); Glucose 81 mg/dL (65-115); Magnesium 1.8 mg/dL (1.7-2.3); Osmolality Calculated 278 mOsm/kg (285-295); Potassium 3.8 mmol/L (3.5-5.1); Sodium 136 mmol/L (136-145); Total Bilirubin 0.2 mg/dL (0.15-1.2); Total Protein 7.4 g/dL (6.6-8.7)
[2024-12-15 13:51] LABS: Add Urine Microscopic? YES; Bacteria Urine None Seen /hpf; Hyaline Casts Urine 0.81 /lpf; RBC Urine 0-2 /hpf (0-2); Squamous Epithelial Cell Urine 0-5 /hpf (0-5); WBC Urine 0-5 /hpf (0-5)
== END 2024-12-15 15:44 | disposition home or self-care (01) ==
PROVIDERS: Emergency Provider Emergency Medicine
DX: K52.9 Noninfective gastroenteritis and colitis, unspecified (principal); B37.31 Acute candidiasis of vulva and vagina; K52.1 Toxic gastroenteritis and colitis; F17.210 Nicotine dependence, cigarettes, uncomplicated
CPT/HCPCS: 36415; 80053; 81001; 83735; 85025; 96374; 96375; 99284; J1200; J2270; J2405; J7030

== ENCOUNTER → 2024-12-31 14:31 | Outpatient (BNVA) | payer BC, MEDICAID, SELFPAY | PROVIDERS: Visit Provider Nurse Practitioner Women's Health | DX: O26.891 Other specified pregnancy related conditions, first trimester (principal); Z3A.01 Less than 8 weeks gestation of pregnancy | CPT/HCPCS: 76805 ==

== ENCOUNTER 2025-01-01 16:32 | Emergency (ER) | payer MEDICAID, SELFPAY ==
[2025-01-01 16:35] VITALS: BP 116/74; PULSE 90; RESP 16; TEMP 36.9; O2SAT 99
--- OUTSIDE RECORDS SUMMARY | 2025-01-01 16:37 | XMS_ITS | Clinical Summary ---
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
--- OUTSIDE RECORDS SUMMARY | 2025-01-01 16:37 | XMS_ITS | Patient Health Record ---
Author Organization [facility] Address [address] [place] [address] Care Team Providers Care Data Reviewer Name Role Phone Tyler Yousif MD Primary Care Provider Marcela Paredes Unavailable [phone] Allergies Allergen (clinical drug ingredient) Drug/Non Drug Allergy documented on EMR Reaction Allergy Type Onset Date Status menthol Icy Hot Unknown Drug Allergy Active paroxetine Paxil Unknown Drug Allergy Active Reason For Referral No Information Medications Medication SIG (Take, Route, Frequency, Duration) Notes Start Date End Date Status Ondansetron HCl 8 MG Tablet 1 tablet as needed Orally Every 8 hours; Duration: 20 day(s) 11/23/2021 Active Pantoprazole Sodium 40 MG Tablet Delayed Release 1 tablet Orally Once a day; Duration: 30 day(s) 06/08/2022 Active Dexlansoprazole 30 MG Capsule Delayed Release 1 capsule Orally Once a day; Duration: 30 day(s) Active Escitalopram Oxalate 10 MG Tablet TAKE 1 TABLET BY MOUTH EVERY DAY; Duration: 30 Active Iron 325 (65 Fe) MG Tablet 1 tablet Orally Twice a day; Duration: 30 day(s) 12/28/2021 Active Xulane 150-35 MCG/24HR Patch Weekly 1 patch Transdermal Weekly; Duration: 90 days Apply a new patch every week for three weeks, remove for 1 week, repeat 09/25/2021 Active Zoloft 25 MG Tablet 1 tablet Orally Once a day; Duration: 90 days 08/06/2021 Active Social History Tobacco Use: Social History Observation Description Date Details (start date - stop date) Current Smoker NA - NA Social History Drugs/Alcohol: Social Info Question Answer Notes Alcohol Screen (Audit-C) Did you have a drink containing alcohol in the past year? No Points 0 Interpretation Negative Drugs Have you used drugs other than those for medical reasons in the past 12 months? Yes Marijuana? Yes Tobacco Use: Social Info Question Answer Notes xTobacco Use/Smoking Are you a current smoker How often do you smoke cigarettes? every day How many cigarettes a day do you smoke? 11-20 Problems Problem Type SNOMED Code ICD Code Onset Dates Problem Status W/U Status Risk Notes Problem Atypical squamous cells on cervical Papanicolaou smear cannot exclude high grade squamous intraepithelial lesion (434315627) Atypical squamous cells cannot exclude high grade squamous intraepithelial lesion on cytologic smear of cervix (ASC-H) (R87.611) Active confirmed Problem Current smoker (92377934) Current smoker (F17.200) Active confirmed Problem Obese class I (580880807099279) BMI 33.0-33.9,adult (Z68.33) Active confirmed Problem First trimester (79823227) First trimester (Z33.1) Active confirmed Problem BMI 30+ - obesity (516126775) BMI 32.0-32.9,adult (Z68.32) Active confirmed Problem Depression (372221635) Depression (F32.9) Active confirmed Problem Obesity (419712698) Obesity (E66.9) Active confirmed Problem Obese class II (768462553229570) BMI 35.0-35.9,adult (Z68.35) Active confirmed Problem Second trimester (51938839) Second trimester (Z34.92) Active confirmed Problem Body mass index 30.00 to 34.99 (412232480260207) BMI 34.0-34.9,adult (Z68.34) Active confirmed Problem Pre-procedure evaluation check (776918265) Preoperative testing (Z01.818) Active confirmed Problem Encounter for supervision of normal in second trimester, unspecified (Z34.92) Active confirmed Problem of unknown location (disorder) (970471134980689) of unknown anatomic location (O36.80X0) Active confirmed Problem Third trimester (51485696) Encounter for supervision of other normal in third trimester (Z34.83) Active confirmed Problem Encounter for initial prescription of Nexplanon (Z30.017) Active confirmed Problem Molar (O02.0) Active confirmed Plan Of Treatment Pending Test Test Name Order Date SYPHILIS TEST, QUAL (RPR) 08366 04/12/20 CBC w\o Diff [id number] 04/12/2022 HIV 1/2 Ag/Ab Screen--[id number] 2021 Insurance Providers Payer Name Payer Address Payer Phone Subscriber Number Group Number Insured Name Patient Relationship to Insured Coverage Start Date Coverage End Date [facility] [facility] [address] [facility] [place] [address] [id number] Devora Farmer Self - patient is the insured 2 Medications Administered Medication Instructions Date of Administration Dosage Notes Etonogestrel 08/17/2022 68 mg Medical (General) History Medical History History ICD Code Chicken Pox Pneumonia anemia migraine headaches Back Trouble Surgical History Surgery Date(Month/Year) Tonsils and Adenoids Removed 1999 Tubes in Ears 2006 [place] Teeth Removal 2008 Left Knee Surgery 2009 Left Knee Surgery 2012 Hospitalization History Reason Date(Month/Year) Dehydration/ stomach flu 2002 pneumonia 1996
--- OUTSIDE RECORDS SUMMARY | 2025-01-01 16:37 | XMS_ITS | Clinical Summary ---
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
--- NOTE | 2025-01-01 16:45 | USR_ITS ---
PROCEDURE INFORMATION: Exam: US Duplex Left Lower Extremity Veins, Limited Exam date and time: 01/01/2025 5:56 PM Age: 29 years old Clinical indication: Pain; Leg, lower; Left; Additional info: Leg pain TECHNIQUE: Imaging protocol: Real-time duplex ultrasound of the left extremity with 2-D mercedes scale, color Doppler flow and spectral waveform analysis including responses to compression and other maneuvers (when performed) with image documentation. Limited exam focused on the left lower extremity veins. COMPARISON: US OB >= 14 weeks fetus [id number] 12/31/2024 2:36 PM FINDINGS: Left deep veins: Unremarkable. The common femoral, femoral, proximal profunda femoral and popliteal veins are patent without thrombus. Normal compressibility, augmentation response and Doppler waveforms. Superficial veins: Greater saphenous vein at the saphenofemoral junction is patent without thrombus. Soft tissues: Unremarkable. US/[place] [id number] IMPRESSION: No sonographic evidence of deep vein thrombosis.
--- NOTE | 2025-01-01 17:06 | W.ED.EXTPRO ---
HPI - Extremity Problem General: Chief complaint: Extremity Injury, Lower Stated complaint: L leg pain, Dr sent for possible clot Time Seen by Provider: 01/01/25 16:45 Source: patient Mode of arrival: ambulatory Limitations: no limitations History of Present Illness: 29-year-old female who is currently 21 weeks states she been having some swelling her legs worse on the left leg she also been having some left calf pain. She sent her by her OB to rule out a blood clot she has no related complaints Associated symptoms: Deny chest pain, fever(s) or rash Related Data Home Medications ?Medication ?Instructions ?Recorded ?Confirmed PNV 153-FA 400 mcg-om3 35 mg-dha 1 tab PO DAILY 12/15/24 12/15/24 25 mg-epa 5 mg-fish oil chew tablet ( Gummies) Previous Rx's ?Medication ?Instructions ?Recorded ferrous sulfate 325 mg (65 mg 325 mg PO BID #60 tabs 12/04/24 iron) tablet ondansetron 4 mg disintegrating 4 mg PO Q6H PRN nausea and 12/15/24 tablet vomiting #14 tabs Allergies Allergy/AdvReac Type Severity Reaction Status Date / Time paroxetine (From Paxil) Allergy ADR-Agitate Verified 12/11/24 13:54 d topical menthol Allergy Severe chemical Uncoded 12/11/24 13:54 burn Review of Systems Const: Denies: fever(s), chills, body aches or change in appetite ENMT: Denies: throat pain or dental pain Card: Denies: chest pain Resp: Denies: dyspnea GI: Denies: abdominal pain, nausea, vomiting or diarrhea Musc: Reports: extremity pain and extremity swelling; Denies: neck pain or back pain Skin/Breast: Denies: rash Neuro: Denies: headache(s) PFSH ED PFSH: Medical History Migraine without aura ADHD was treated with Wellbutrin -- ran out; needs pcp No pertinent past medical history neghx: htn, dm, thyroid, dvt/pe PCP: none Surgical History History of wisdom tooth extraction, class I edentulism Hx of knee surgery History of placement of ear tubes History of tonsillectomy and adenoidectomy Hx laparoscopic cholecystectomy History of delivery (~2001) Primary for breech presentation-- Dr Kang Graham Family History Father Diabetes Grandfather Diabetes Grandmother Heart disease Denies family history of Colon cancer Ovarian cancer Prostate cancer Hyperlipidemia Breast cancer Hypertension Uterine cancer Thyroid disease Stroke Social History Smoking and tobacco/nicotine status: current every day tobacco/nicotine user (1 pack every 3 days) Physical Exam Const: COMMON NORMALS: no acute distress, patient oriented x3 and healthy appearing HENMT: COMMON NORMALS: normocephalic and atraumatic HEAD & SCALP: normocephalic and atraumatic Eye: COMMON NORMALS: conjunctivae normal CONJUNCTIVA: Yes conjunctivae normal Neck/C-Spine: COMMON NORMALS: full ROM and supple Chest: COMMONS NORMALS: normal inspection of the chest Resp: COMMON NORMALS: normal respiratory effort Cardio: COMMON NORMALS: regular rate RATE: regular rate Extremity: COMMON NORMALS: full ROM NARRATIVE EXTREMITY EXAM: Slight swelling to lower legs no rash distal pulses intact Neuro: COMMON NORMALS: patient oriented x3, moves all extremities and no focal motor deficits Psych: COMMON NORMALS: mental status grossly normal, Normal thought process present and cooperative THOUGHT PROCESS: Normal thought process present Skin: COMMON NORMALS: no rashes or lesions noted and no wounds GENERAL SKIN EXAM: no rashes or lesions noted Course Vital Signs: Vital signs: Vital Signs Temperature 98.4 F 01/01/25 16:35 Pulse Rate 90 01/01/25 16:35 Respiratory Rate 16 01/01/25 16:35 Blood Pressure 116/74 01/01/25 16:35 Pulse Oximetry 99 01/01/25 16:35 Oxygen Delivery Me thod Room Air 01/01/25 16:35 MDM - Extremity (Nontraumatic) Medical Decision Making Patient presents here with left lower leg edema minimal and distal pulses were palpable ultrasound showed no DVT she stable for discharge she is to follow-up with her OB return if worsening Medical Records I reviewed the patient's medical records. All radiology interpretation(s) finalized by discharge Discharge Plan Discharge Patient Disposition: Home Clinical Impression: Leg edema Condition: Stable Prescriptions: No Action ferrous sulfate 325 mg (65 mg iron) tablet 325 mg PO BID Qty: 60 4RF Gummies 400 mcg-35 mg- 25 mg-5 mg Tablet,Chewable 1 tab PO DAILY ondansetron 4 mg tablet,disintegrating 4 mg PO Q6H PRN (Reason: nausea and vomiting) Qty: 14 0RF Discharge Orders: Discharge ED (Routine); Ordered 01/01/25 Ordered By: Elan Smith Discharge Diet: Advance as tolerated Discharge Activity: Resume usual activity Patient Instructions: Leg Edema (ED) Print Language: Omani Coding Level of Care Code ED Warping Mill Operator for Radha Alfred
== END 2025-01-01 18:36 | disposition home or self-care (01) ==
PROVIDERS: Emergency Provider Emergency Medicine
DX: O12.02 Gestational edema, second trimester (principal); O99.332 Smoking (tobacco) complicating pregnancy, second trimester; F17.210 Nicotine dependence, cigarettes, uncomplicated; Z3A.21 21 weeks gestation of pregnancy
CPT/HCPCS: 93971; 99284

== ENCOUNTER → 2025-01-25 13:44 | Outpatient (BNVA) | payer MEDICAID, SELFPAY | PROVIDERS: Visit Provider Obstetrics & Gynecology | DX: Z34.82 Encounter for supervision of other normal pregnancy, second trimester (principal) | CPT/HCPCS: 82950; 84315 ==

== ENCOUNTER → 2025-02-13 16:30 | Outpatient (BNVA) | payer MEDICAID, SELFPAY | PROVIDERS: Visit Provider Obstetrics & Gynecology | DX: Z34.90 Encounter for supervision of normal pregnancy, unspecified, unspecified trimester (principal) | CPT/HCPCS: 84315 ==

== ENCOUNTER 2025-03-04 08:11 | Outpatient (CLI) | payer MEDICAID, SELFPAY ==
[2025-03-04] VITALS (9 sets, daily range): BP systolic 118; BP diastolic 64; PULSE 97–106; TEMP 36.7; O2SAT 96–100; BMI 32.2
== END 2025-03-04 09:35 | disposition home or self-care (01) ==
LOC: OPOB 08:20 → OBGYN 08:25
PROVIDERS: Visit Provider Obstetrics & Gynecology
DX: O26.899 Other specified pregnancy related conditions, unspecified trimester (principal); Z3A.00 Weeks of gestation of pregnancy not specified; R05.9 Cough, unspecified; R09.81 Nasal congestion; H92.09 Otalgia, unspecified ear
CPT/HCPCS: 59025; 99211

== ENCOUNTER → 2025-03-11 08:44 | Outpatient (BNVA) | payer MEDICAID, SELFPAY | PROVIDERS: Visit Provider Obstetrics & Gynecology | DX: O09.899 Supervision of other high risk pregnancies, unspecified trimester (principal); Z3A.00 Weeks of gestation of pregnancy not specified | CPT/HCPCS: 84315 ==

== ENCOUNTER → 2025-03-25 08:25 | Outpatient (BNVA) | payer MEDICAID, SELFPAY | PROVIDERS: Visit Provider Obstetrics & Gynecology | DX: O09.899 Supervision of other high risk pregnancies, unspecified trimester (principal) | CPT/HCPCS: 84315 ==

== ENCOUNTER → 2025-04-05 09:13 | Outpatient (BNVA) | payer MEDICAID, SELFPAY | PROVIDERS: Visit Provider Nurse Practitioner Women's Health | DX: Z34.90 Encounter for supervision of normal pregnancy, unspecified, unspecified trimester (principal) | CPT/HCPCS: 80307; 84315; 85025 ==

== ENCOUNTER 2025-04-10 10:35 | Outpatient (CLI) | payer MEDICAID, SELFPAY ==
[2025-04-10 10:45] VITALS: BMI 28.1
[2025-04-10 10:49] VITALS: BP 110/57; PULSE 81
[2025-04-10 11:09] VITALS: BP 125/69; PULSE 83
[2025-04-10 11:29] VITALS: BP 111/57; PULSE 75
[2025-04-10 11:49] VITALS: BP 108/55; PULSE 77
[2025-04-10 12:09] VITALS: BP 102/57; PULSE 81
== END 2025-04-10 12:15 | disposition home or self-care (01) ==
LOC: OPOB 10:37 → OBGYN 10:44
PROVIDERS: Visit Provider Family Medicine
DX: O26.899 Other specified pregnancy related conditions, unspecified trimester (principal); Z3A.00 Weeks of gestation of pregnancy not specified
CPT/HCPCS: 59025; 99211

== ENCOUNTER 2025-04-17 07:41 | Oncology outpatient (recurring) (ONCR) | payer MEDICAID, SELFPAY ==
[2025-04-08 15:20] VITALS: BP 98/64; PULSE 90; RESP 16; TEMP 36.7; O2SAT 98
[2025-04-08] MEDS: iron sucrose 200 MG in sodium chloride 0.9% (100 ml) 100 ML IV (15:51)
[2025-04-08 17:10] VITALS: BP 99/62; PULSE 90
[2025-04-08 17:28] VITALS: BP 110/65; PULSE 97; RESP 16; O2SAT 98
[2025-04-10 08:20] VITALS: BP 106/75; PULSE 91; TEMP 36.2; O2SAT 100
[2025-04-10] MEDS: iron sucrose 200 MG/100 ML BAG IV (08:34)
[2025-04-10 09:15] VITALS: BP 94/60; PULSE 85
[2025-04-10 09:40] VITALS: BP 93/57; PULSE 74; O2SAT 98
--- NOTE | 2025-04-10 16:21 | PC.NURSE ---
Pt came in for iron infusion, VS were good at 106/75 for BP. Pt was finishing up her infusion when she started complaining of right-sided head and face pain. Took BP again and it was down to 94/60, I had the pt stand up. The pt was standing there for a minute and started swaying. Stated she wasn't feeling very good, I had her sit back down and took BP again where it was 93/57. Notified her OB and they advised that pt be taken to OB department to be assessed.
[2025-04-12] MEDS: iron sucrose 200 MG/100 ML BAG IV (07:55)
[2025-04-12 08:25] VITALS: BP 110/66; PULSE 80; RESP 18; TEMP 36.6; O2SAT 98
[2025-04-12 08:45] VITALS: BP 104/63; PULSE 84; TEMP 36.3; O2SAT 99
[2025-04-15 08:29] VITALS: BP 109/66; PULSE 96; RESP 16; TEMP 36.5; O2SAT 99
[2025-04-15] MEDS: iron sucrose 200 MG/100 ML BAG IV (08:37)
[2025-04-15 09:17] VITALS: BP 106/64; PULSE 98; RESP 17; TEMP 37; O2SAT 99
[2025-04-17] MEDS: iron sucrose 200 MG/100 ML BAG IV (08:24)
[2025-04-17 08:59] VITALS: BP 116/67; PULSE 91; RESP 17; TEMP 37.2; O2SAT 96
== END 2025-04-19 23:59 | disposition home or self-care (01) ==
PROVIDERS: Visit Provider Internal Medicine Medical Oncology
DX: O99.019 Anemia complicating pregnancy, unspecified trimester (principal); Z79.899 Other long term (current) drug therapy
CPT/HCPCS: 96365; J1756; J7050

== ENCOUNTER → 2025-04-19 13:55 | Outpatient (BNVA) | payer MEDICAID, SELFPAY | PROVIDERS: Visit Provider Nurse Practitioner Women's Health | DX: O26.893 Other specified pregnancy related conditions, third trimester (principal); Z3A.36 36 weeks gestation of pregnancy | CPT/HCPCS: 84315; 87081 ==

== ENCOUNTER → 2025-04-24 14:15 | Outpatient (BNVA) | payer BC, MEDICAID, SELFPAY | PROVIDERS: Visit Provider Nurse Practitioner Women's Health | DX: O99.012 Anemia complicating pregnancy, second trimester (principal); Z3A.00 Weeks of gestation of pregnancy not specified | CPT/HCPCS: 84315; 85025 ==

== ENCOUNTER → 2025-05-03 08:14 | Outpatient (BNVA) | payer MEDICAID, SELFPAY | PROVIDERS: Visit Provider Obstetrics & Gynecology | DX: Z34.90 Encounter for supervision of normal pregnancy, unspecified, unspecified trimester (principal) | CPT/HCPCS: 84315 ==

== ENCOUNTER → 2025-05-10 08:06 | Outpatient (BNVA) | payer BC, MEDICAID, SELFPAY | PROVIDERS: Visit Provider Obstetrics & Gynecology | DX: Z34.93 Encounter for supervision of normal pregnancy, unspecified, third trimester (principal); Z3A.39 39 weeks gestation of pregnancy; F17.210 Nicotine dependence, cigarettes, uncomplicated; Z98.891 History of uterine scar from previous surgery; D64.9 Anemia, unspecified; F41.1 Generalized anxiety disorder; F43.10 Post-traumatic stress disorder, unspecified; F32.A Depression, unspecified | CPT/HCPCS: 84315 ==

== ENCOUNTER 2025-05-17 07:27 | Inpatient (IN) | payer MEDICAID, SELFPAY ==
[2025-05-17] VITALS (75 sets, daily range): BP systolic 85–122; BP diastolic 47–76; PULSE 59–90; RESP 16–18; TEMP 36.6–36.8; O2SAT 97–99; BMI 31.1
[2025-05-17 07:55] LABS: Hematocrit 37.5 % (36-47); Hemoglobin 11.50 g/dL (11.27-16.99); Mean Corpuscular HGB Conc 30.7 g/dL (30-55); Mean Corpuscular Hemoglobin 22.3 pg (27-33); Mean Corpuscular Volume 72.7 fl (85-98); Nucleated Red Blood Cells % 0 %; Platelet Count 166 10^3/cmm (157-399); Red Blood Count 5.16 10^6/uL (3.85-5.65); White Blood Count 10.08 10^3/uL (3.29-11.43)
[2025-05-17 08:18] LABS: PCP Screen Urine Negative (Negative)
--- NOTE | 2025-05-17 09:12 | P.HP_ITS ---
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 She has been consented in office by several providers to specifically address risk. Present Details : 5 Para: 3 Labs Rubella: Immune RPR: Negative GBS: Negative Review of Systems 2 Narrative: OB: movement: [] Const: Denies: fever(s) or chills Card: Denies: chest pain, palpitations or syncope Resp: Denies: dyspnea GI: Denies: abdominal pain, nausea or vomiting : Denies: flank pain, dysuria or urinary frequency Musc: Denies: back pain or extremity swelling Skin/Breast: Denies: rash, pruritus or breast pain Neuro: Denies: headache(s) or dizziness Psych: Denies: anxiety, depression or mood swings Endo: Denies: polyuria, tired all the time, cold intolerance or heat intolerance Juan Luis/Lymph: Denies: easy bruising or easy bleeding All/Imm: Denies: urticaria Medications/Allergies Home Medications ?Medication ?Instructions ?Recorded ?Confirmed ?Last Taken ?Type PNV 153-FA 400 mcg-om3 35 mg-dha 1 tab PO DAILY 05/17/25 12/14/24 History 25 mg-epa 5 mg-fish oil chew tablet ( Gummies) citalopram 20 mg tablet (Celexa) 20 mg PO DAILY #30 ta bs 04/24/25 05/17/25 Unknown Rx Allergies Allergy/AdvReac Type Severity Reaction Status Date / Time menthol Allergy ALGY-Redness Verified 05/14/25 08:00 of Skin paroxetine (From Paxil) Allergy ADR-Agitate Verified 05/14/25 08:00 d PFSH [employer]OR [employer] 2 PFSH: Medical History (Updated 05/17/25 @ 09:17 by Loly Keller MD) Encounter for trial of labor History of molar (Unknown) Migraine without aura ADHD was treated with Wellbutrin -- ran out; needs pcp No pertinent past medical history neghx: htn, dm, thyroid, dvt/pe PCP: none Surgical History History of wisdom tooth extraction, class I edentulism Hx of knee surgery History of placement of ear tubes History of tonsillectomy and adenoidectomy Hx laparoscopic cholecystectomy History of delivery (~2001) Primary for breech presentation-- Dr Kang Graham Family History Father Diabetes Grandfather Diabetes Grandmother Heart disease Denies family history of Colon cancer Ovarian cancer Prostate cancer Hyperlipidemia Breast cancer Hypertension Uterine cancer Thyroid disease Stroke Social History Smoking and tobacco/nicotine status: current every day tobacco/nicotine user (1 pack daily) History History History 2 5 Term 3 0 Miscarriages/Ectopic 1 Living Children 3 Care NEIL Calculator 2 Estimated Delivery Date Method Current WG Current Estimate 05/17/25 Ultrasound #1 40w 0d Other Estimates 04/19/25 LMP (Uncertain) 44w 0d Specific Issues/Plans * THC USE; cessation counseling performed * UTI at 16wks; Ecoli--- CARLO AT 20 WEEKS * PREVIOUS ; requested records 11/30/2024-- desires * ANEMIA; started iron twice daily at 16 weeks; iron infusion; cbc pending 04/24/25 * NICOTINE USE ; cessation counseling performed Vitals/I&O/Wt Last Vital Signs Temp 98.2 F 05/17/25 07:27 Pulse 90 05/17/25 07:27 Resp 16 05/17/25 07:43 BP 122/70 05/17/25 07:27 O2 Del Method Room Air 05/17/25 08:08 Weight last 48 hrs Weight 187 lb Physical Exam 2 Narrative: Appearance: grossly normal Attitude: calm and engaged, appropriate eye contact Const: no acute distress, oriented x3 cooperative Chest: Symmetrical chest wall rise Resp: normal respiratory effort, clear to auscultation bilaterally Cardio: regular rate and regular rhythm GI: Soft to palpation, gravid, Non Tender, no Guarding : No Uterine tenderness, cvx 1/thk/-2, vertex, balloon placed in cervix. Extremity: normal inspection, + pedal edema Neuro: oriented x3 and moves all extremities, speech normal Psych: mental status grossly normal, and Normal thought process present Skin: no rashes or lesions noted Data 05/17/25 07:30 Results Labs OB ([facility]): 2 Obstetrics 04/22/25 Blood Type O Positive Today Antibody Screen Negative Today Hct, (36-47) 37.5 % Today Hgb, (11.27-16.99) 11.50 g/dL Today Rho(D) Type Rh positive Today Plt Count, (157-399) 166 10^3/cmm Today Hep Bs Antigen, (Nonreactive) Non-reactive 11/30/24 Hepatitis C Antibody, (Nonreactive) Non-reactive 11/18 09/11 Rubella IgG Antibody, (0.0-10.0) 39.6 IU/mL H 5 RPR, (Nonreactive) Nonreactive 11/30/24 HIV 1&2 Ab & HIV 1 Ag, (Non-Reactiv) Non-reactive Glucose 1 Hr 50 gm, (85-140) 129 mg/dL 01/25/25 Ser , Semi-Qnt 25797.00 mIU/mL 10/30/24 HCG, Qual, (Negative) Positive H 11/30/24 Urine Opiates Screen, (Negative) Negative ng/mL Today Ur Barbiturates Screen, (Negative) Negative ng/mL Today Ur Phencyclidine Scrn, (Negative) Negative ng/mL Today Ur Amphetamines Screen, (Negative) Negative ng/mL Today U Benzodiazepines Scrn, (Negative) Negative ng/mL Today Urine Cocaine Screen, (Negative) Negative ng/mL Today U Marijuana (THC) Screen, (Negative) Negative ng/mL Tod ay Micro Urine Specimen 11/30/24 Pap Smear Interpret See note 12/11/24 A&P Assessment and plan 1. Encounter for trial of labor: TOLAC. Consented for risk to include risk of rupture less than 1%, includes danger to mom and baby, risk of bleeding, infection and failed induction resulting RCS. 2. Use of nicotine during : 3. Supervision of other high-risk : 4. Anemia affecting : sp iron infusions. 5. Marijuana use during : 6. History of delivery: PDMP PDMP Reviewed: Not Reviewed Attestations 2 Medical Necessity Statement*: NA Coding Level of Care Code Acute Code for Chg Fwd Diagnoses Encounter for trial of labor Use of nicotine during O99.330 Supervision of other high-risk O09.899 Anemia affecting O99.019 Marijuana use during O99.320; F12.90 History of delivery Z98.891
[2025-05-17] MEDS: oxytocin 30 UNIT/500 ML BAG IV (09:30)
--- NOTE | 2025-05-17 11:01 | ANES.PREANE2 ---
Pre-Anesthetic Assessment Height/Weight: Height 1.65 m Weight 84.822 kg Temp Pulse Resp BP O2 Del Method 98.2 F 68 16 106/56 Room Air 05/17/25 07:27 05/17/25 10:58 05/17/25 07:43 05/17/25 10:58 05/17/25 08:08 Epidural Familial anesthetic complications: None Was Beta Monse taken within 24 hours: N/A Was Clonidine taken within 24 hours: N/A Last intake: 644 solids Social Tobacco and No alcohol 6-8/day pack(s) per day Exam alert, oriented x 3, clear to auscultation bilaterally and regular rate & rhythm Airway Submandibular: within normal limits Cervical ROM: within normal limits (TMJ) Mallampati: Class II Dentition: full History/ROS No significant history except as noted and No significant complaints Pulmonary None reported CV/HEM Anemia None reported Hepatic None reported GI Gastroesophageal Reflux Disease (Gestational) Metabolic Hypoglycemia Musc/sk Pt states she is missing some of her natural curve, experiences a lot of back and neck pain Neuropsych Anxiety, Depression and Headache (Chronic migraines) Anesthetic Plan ASA status: 3 Anesthesia: Anesthesia Evaluation, General and Regional (specify below) (SAB/Epidural) Risk of > 500 ml blood loss (7ml/kg in children): Yes, adequate IV access and fluids planned Medications/Allergies Home Medications ?Medication ?Instructions ?Recorded ?Confirmed ?Last Taken ?Type PNV 153-FA 400 mcg-om3 35 mg-dha 1 tab PO DAILY 12/15/24 05/17/25 12/14/24 History 25 mg-epa 5 mg-fish oil chew tablet ( Gummies) citalopram 20 mg tablet (Celexa) 20 mg PO DAILY #30 tabs 04/24/25 05/17/25 Unknown Rx Allergies Allergy/AdvReac Type Severity Reaction Status Date / Time menthol Allergy ALGY-Redness Verified 05/14/25 08:00 of Skin paroxetine (From Paxil) Allergy ADR-Agitate Verified 05/14/25 08:00 d Current Medications Generic Name Dose Route Start Last Admin Trade Name Freq PRN Reason Stop Dose Admin Citalopram Hydrobromide 20 mg 05/17/25 08:00 05/17/25 09:34 Citalopram 20 Mg Tablet PO 20 mg DAILY JIMI Administration Dextrose/Lactated Ringer's 1,000 mls @ 125 mls/hr 05/17/25 07:45 05/17/25 09:34 Dextrose 5%-Lactated Ringers IV 125 mls/hr .Q8H JIMI Administration Oxytocin 30 unit in 500 mls @ 2 mls/hr 05/17/25 09:15 05/17/25 10:00 Pitocin IV 6 milliunit/min .Q24H JIMI 6 mls/hr Protocol Titration 2 MILLIUNIT/MIN [facility] Anesthesia Medical History (Updated 05/17/25 @ 09:17 by Loly Keller MD) Encounter for trial of labor History of molar (Unknown) Migraine without aura ADHD was treated with Wellbutrin -- ran out; needs pcp No pertinent past medical history neghx: htn, dm, thyroid, dvt/pe PCP: none Surgical History History of wisdom tooth extraction, class I edentulism Hx of knee surgery History of placement of ear tubes History of tonsillectomy and adenoidectomy Hx laparoscopic cholecystectomy History of delivery (~2001) Primary for breech presentation-- Dr Kang Graham Family History Father Diabetes Grandfather Diabetes Grandmother Heart disease Denies family history of Colon cancer Ovarian cancer Prostate cancer Hyperlipidemia Breast cancer Hypertension Uterine cancer Thyroid disease Stroke Social History Smoking and tobacco/nicotine status: current every day tobacco/nicotine user (1 pack daily) Female Reproductive History : 5 Data Anesthesia 05/17/25 07:30 Short CBC 05/17/25 Range/Units 07:30 WBC 10.08 (3.29-11.43) 10^3/uL Hgb 11.50 (11.27-16.99) g/dL Hct 37.5 (36-47) % MCV 72.7 L (85-98) fl Plt Count 166 (157-399) 10^3/cmm Neut % (Auto) 70.8 % Neut # (Auto) 7.14 (1.8-7.7) 10^3/uL Blood Bank 11/28/25 07:30 Blood Type O Positive Rho(D) Type Rh positive Antibody Screen Negative
[2025-05-17] MEDS: fentaNYL 50 mcg/mL INJ 2mL IVP ×2 (11:19→13:42)
[2025-05-17] MEDS: ROPivacaine premix 200 MG/100 ML PREMIX 13 MG EPIDURAL (14:18)
--- NOTE | 2025-05-17 14:23 | ANES.PROC ---
Anesthesia Procedures Procedure/Date: 05/17/25 Epidural: Time Out Performed: Yes Consents Signed: Procedure Consent and NPO Consent Consent: requested by attending/covering physician, from patient, risks and benefits reviewed and patient agrees to proceed Lumbar Level: L2-L3 Epidural position: sitting Epidural procedure: sterile prep of area (betadine), 1% lidocaine to numb the area (3 mLs), neg for paresthesia, test dose given, 1.5% xylocaine 1:200k epi (3 mLs/ 2 mLs), placed PCEA, no systemic response, sterile dressing applied, L.U.D. no apparent complications and 0.2% Ropiavacaine @ mls/hr (13) Additional Comments: CHANO 4cm, catheter threaded to 10cm. Negative aspiration for CSF and blood. [employer]DI[employer] TRADER button education given and patient verbalizes understanding.
[2025-05-17] MEDS: ondansetron 2 mg/ML SDV 2 mL 4 MG IVP (16:40)
[2025-05-17 17:56] LABS: High Risk PP Hemorrhage BBK Notified
--- NOTE | 2025-05-17 19:56 | PM.DELIVERY ---
Delivery Note: Date of delivery: May 17, 2025 Pre-delivery diagnoses: IUP@40 wks, TOLAC Post-delivery diagnoses: same Procedure: Delivering Physician: Loly Keller MD Delivery: Patient began pushing and delivered by a viable female over intact perineum. Cord clamping delayed x 90 seconds, nuchal x 1 easily reduced. Placenta delivered spontaneously intact. No lacerations. Mom and baby recovering in room. History History History 5 Term 3 0 Miscarriages/Ectopic 1 Living Children 3 A&P PDMP PDMP Reviewed: Not Reviewed Coding Level of Care Code Acute Code for Chg Fwd
[2025-05-17 20:48] LABS: High Risk PP Hemorrhage BBK Notified
[2025-05-17] MEDS: benzocaine-menthol 78 gm Canister 1 SPRAY TOPICAL (22:24)
[2025-05-18 00:30] VITALS: BP 92/58; PULSE 79; RESP 16; TEMP 36.6; O2SAT 98
[2025-05-18 01:44] VITALS: BP 100/59; PULSE 73; RESP 16; O2SAT 97
[2025-05-18] MEDS: PRENATAL VIT NO.130/IRON/FOLIC 1 EACH TABLET PO (04:12)
[2025-05-18 04:13] VITALS: BP 97/54; PULSE 74; RESP 16; O2SAT 98
[2025-05-18 04:30] LABS: Hematocrit 33.5 % (36-47); Hemoglobin 10.40 g/dL (11.27-16.99); Mean Corpuscular HGB Conc 31.0 g/dL (30-55); Mean Corpuscular Hemoglobin 23.0 pg (27-33); Mean Corpuscular Volume 74.0 fl (85-98); Platelet Count 149 10^3/cmm (157-399); Red Blood Count 4.53 10^6/uL (3.85-5.65); White Blood Count 14.90 10^3/uL (3.29-11.43)
[2025-05-18 10:14] VITALS: BP 97/57; PULSE 73; RESP 16; TEMP 36.8; O2SAT 98
--- NOTE | 2025-05-18 10:17 | PM.OBGYDC ---
Discharge Providers INSURANCE ACCOUNT ASSISTANT Date of Admission: 05/17/25 07:27 Date of Discharge: 05/18/25 Attending Provider at Admission: Loly Keller MD Attending Provider at Discharge: Loly Keller MD Diagnoses at Discharge Discharge Diagnosis 1. , delivered: 2. Encounter for trial of labor: 3. Use of nicotine during : 4. Supervision of other high-risk : 5. Anemia affecting in second trimester: 6. Marijuana use during : 7. History of delivery: Reason for Visit Reason for Visit: Induction of labor Hospital Course Hospital Course Admitted for IOL for TOLAC. Progressed with balloon and pitocin until . Uneventful pp progress in diet, ambulation and pain control. See chart for details. Information Peripartum Data: Delivery Method: Vaginal Physical Exam Narrative: Appearance: grossly normal Attitude: calm and engaged, appropriate eye contact Const: no acute distress, oriented x3 cooperative Chest: Symmetrical chest wall rise Resp: normal respiratory effort, clear to auscultation bilaterally Cardio: regular rate and regular rhythm GI: Soft to palpation, fundus firm, no Guarding Extremity: normal inspection, negative for pedal edema Neuro: oriented x3 and moves all extremities, speech normal Psych: mental status grossly normal, and Normal thought process present Skin: no rashes or lesions noted Urinary Catheter Management: Mehta Latex: Cath Placed During This Visit: yes, but has since been removed by the nurse Reason for Continuing Indwelling Catheter: Decision to DC Catheter Urinary Catheter Date of Insertion: 05/17/25 Urinary Catheter Time of Insertion: 14:54 Date Urinary Catheter Removed: 05/17/25 Time Urinary Catheter Discontinued: 19:35 History History History 5 Term 3 0 Miscarriages/Ectopic 1 Living Children 3 Discharge Data Studies Completed and Pending Laboratory Results WBC 14.90 10^3/uL (3.29-11.43) H 05/18/25 04:23 RBC 4.53 10^6/uL (3.85-5.65) 05/18/25 04:23 Hgb 10.40 g/dL (11.27-16.99) L 05/18/25 04:23 Hct 33.5 % (36-47) L 05/18/25 04:23 MCV 74.0 fl (85-98) L 05/18/25 04:23 MCH 23.0 pg (27-33) L 05/18/25 04:23 MCHC 31.0 g/dL (30-55) 05/18/25 04:23 RDW 26.9 % (12.1-15.1) H 05/18/25 04:23 Plt Count 149 10^3/cmm (157-399) L 05/18/25 04:23 MPV Not Reportable 05/18/25 04:23 Neut % (Auto) 70.8 % 05/17/25 07:30 Lymph % (Auto) 14.1 % 05/17/25 07:30 [place] % (Auto) 9.2 % 05/17/25 07:30 Eos % (Auto) 1.6 % 05/17/25 07:30 Baso % (Auto) 0.4 % 05/17/25 07:30 Neut # (Auto) 7.14 10^3/uL (1.8-7.7) 05/17/25 07:30 Lymph # (Auto) 1.4 10^3/uL (0.8-4.8) 05/17/25 07:30 [place] # (Auto) 0.9 10^3/uL (0.2-0.9) 05/17/25 07:30 Eos # (Auto) 0.2 10^3/uL (0.0-0.8) 05/17/25 07:30 Baso # (Auto) 0.0 10^3/uL (0.0-0.1) 05/17/25 07:30 Nucleated RBC % (auto) 0 % 05/17/25 07:30 Nucleated RBCs # 0.0 /100WBC 05/17/25 07:30 Urine Opiates Screen Negative ng/mL (Negative) 05/17/25 07:45 Ur Barbiturates Screen Negative ng/mL (Negative) 05/17/25 07:45 Ur Phencyclidine Scrn Negative ng/mL (Negative) 05/17/25 07:45 Ur Amphetamines Screen Negative ng/mL (Negative) 05/17/25 07:45 U Benzodiazepines Scrn Negative ng/mL (Negative) 05/17/25 07:45 Urine Cocaine Screen Negative ng/mL (Negative) 05/17/25 07:45 U Marijuana (THC) Screen Negative ng/mL (Negative) 05/17/25 07:45 Blood Type O Positive 05/17/25 07:30 Rho(D) Type Rh positive 05/17/25 07:30 Antibody Screen Negative 05/17/25 07:30 Vitals Last Vital Signs Temp 98.2 F 05/18/25 10:14 Pulse 73 05/18/25 10:14 Resp 16 05/18/25 10:14 BP 97/57 05/18/25 10:14 Pulse Ox 98 05/18/25 10:14 O2 Del Method Room Air 05/18/25 10:14 Results Labs OB ([facility]): Obstetrics US 04/22/25 Blood Type O Positive 05/17/25 Antibody Screen Negative 05/17/25 Hct, (36-47) 33.5 % L Today Hgb, (11.27-16.99) 10.40 g/dL L Today Rho(D) Type Rh positive 05/17/25 Plt Count, (157-399) 149 10^3/cmm L Today Hep Bs Antigen, (Nonreactive) Non-reactive 11/30/24 Hepatitis C Antibody, (Nonreactive) Non-reactive 11/30/24 Rubella IgG Antibody, (0.0-10.0) 39.6 IU/mL H 11/30/24 RPR, (Nonreactive) Nonreactive 11/30/24 HIV 1&2 Ab & HIV 1 Ag, (Non-Reactiv) Non-reactive 11/30/24 Glucose 1 Hr 50 gm, (85-140) 129 mg/dL 01/25/25 Ser , Semi-Qnt 45778.00 mIU/mL 10/30/24 HCG, Qual, (Negative) Positive H 11/30/24 Urine Opiates Screen, (Negative) Negative ng/mL 05/17/25 Ur Barbiturates Screen, (Negative) Negative ng/mL 05/17/25 Ur Phencyclidine Scrn, (Negative) Negative ng/mL 05/17/25 Ur Amphetamines Screen, (Negative) Negative ng/mL 05/17/25 U Benzodiazepines Scrn, (Negative) Negative ng/mL 05/17/25 Urine Cocaine Screen, (Negative) Negative ng/mL 05/17/25 U Marijuana (THC) Screen, (Negative) Negative ng/mL 05/17/25 Micro Urine Specimen 11/30/24 Pap Smear Interpret See note 12/11/24 Discharge Plan Discharge Patient Disposition: Home Condition: Stable Prescriptions: New acetaminophen 325 mg Tablet 650 mg PO Q6H PRN (Reason: Mild pain or temp > 100.4) Qty: 0 0RF ibuprofen 800 mg Tablet 800 mg PO TID Qty: 0 0RF Continued citalopram [Celexa] 20 mg tablet 20 mg PO DAILY Qty: 30 2RF Gummies 400 mcg-35 mg- 25 mg-5 mg Tablet,Chewable 1 tab PO DAILY Discharge Order = DC NOW: Discharge Order (Routine); Ordered 05/18/25 Ordered By: Loly Keller Discharge Diet: Regular Discharge Activity: Increase activity as tolerated Patient Instructions: Opioid Safety, Patient Portal & Darrell Instructions Activity Restrictions/Additional Instructions: Pelvic rest x 6 wks Discharge Attestations INSURANCE ACCOUNT ASSISTANT Time Spent in Discharge Care*: less than 30 min Coding Level of Care Code Acute Code for Chg Fwd Diagnoses , delivered O34.219 Encounter for trial of labor Use of nicotine during O99.330 Supervision of other high-risk O09.899 Anemia affecting in second trimester O99.012 Trimester: second trimester Marijuana use during O99.320; F12.90 History of delivery Z98.891
[2025-05-18 17:00] VITALS: BP 102/60; PULSE 72; RESP 16; TEMP 36.9
[2025-05-18 21:20] VITALS: BP 108/64; PULSE 74; RESP 16; TEMP 36.7; O2SAT 98
== END 2025-05-18 21:20 | disposition home or self-care (01) | DRG 560 ==
LOC: OPOB 07:27 → OBGYN 07:27
PROVIDERS: Admitting Provider Obstetrics & Gynecology; Visit Provider Obstetrics & Gynecology
DX: O34.219 Maternal care for unspecified type scar from previous cesarean delivery (principal); N85.8 Other specified noninflammatory disorders of uterus; Z3A.40 40 weeks gestation of pregnancy; Z37.0 Single live birth; O99.334 Smoking (tobacco) complicating childbirth; F17.200 Nicotine dependence, unspecified, uncomplicated
CPT/HCPCS: 36415; 51702; 59025; 59409; 80306; 85025; 85027; 86850; 86900; J2405; J2590; J2795; J3010; J7120; J7121; J9999